=== PATIENT | male | born 1970 | race Caucasian/White ===

== ENCOUNTER → 2020-10-16 13:57 | Outpatient (CLI) | payer BC, SELFPAY ==
--- NOTE | 2020-10-16 14:06 | XR_ITS ---
PROCEDURE: XR ANKLE LT MIN 3V CLINICAL INDICATION: LT ANKLE PAIN COMPARISON: CR ANKL3 ANKLE-LT-3 VIEWS from 05/17/2015 FINDINGS: Minimal hypertrophic changes of the tip of the medial epicondyle noted. The joint spaces are well preserved. The talar dome has an unremarkable appearance. There is some sclerosis and hypertrophy of the sinus tarsi region of the calcaneus. No fracture or dislocation. No lytic or blastic change. IMPRESSION: Degenerative changes, no acute finding Dictated by: Jarod Bowens MD 11/02/2020 13:45 Jarod Bowens MD in [facility] 11/02/2020 13:45
== END ==
PROVIDERS: PCP Family Medicine; Visit Provider Family Medicine
DX: M25.572 Pain in left ankle and joints of left foot (principal)
CPT/HCPCS: 73610

== ENCOUNTER → 2020-12-05 08:43 | Outpatient (CLI) | payer BC, SELFPAY ==
--- NOTE | 2020-12-05 09:08 | MR_ITS ---
PROCEDURE: MR ANKLE LT WO/W CON CLINICAL INDICATION: left ankle pain COMPARISON: CR XR ANKLE LT MIN 3V from 10/16/2020 TECHNIQUE: Routine multiplanar multi echo sequences are performed without gadolinium enhancement. FINDINGS: The flexor, extensor and peroneal tendons are within normal limits. No evidence of tendinopathy or tear is noted. Visualized Achilles tendon is within normal limits. No abnormal signal intensity or tears noted. The syndesmotic, anterior and posterior talofibular ligaments are intact. The deltoid ligament complex appears intact. Calcaneofibular ligament demonstrates minor fraying but otherwise appears in the unremarkable. There is fluid noted in the retrocalcaneal bursa. There is multiple subchondral cysts noted in the calcaneum in the posterior subtalar joints, measuring up to 8 millimeters. There is a adjacent to the posterior talar articular surface. There is evidence of bone marrow edema of the calcaneum. No evidence of fracture is noted. Noted. The rest of the tarsals are unremarkable. There is evidence of osteophyte formation with degenerative changes of the subtalar joints. No evidence of osteochondral injury. IMPRESSION: There is bone marrow edema in the body of the calcaneum adjacent to the posterior talar articular surface without evidence of fractures. Multiple subchondral cystic changes noted in the posterior talar articular surface, consistent with osteoarthritis. No other acute abnormality is noted. Dictated by: Kendal Trinidad 12/08/2020 12:29 Kendal Trinidad in [facility] 12/08/2020 12:29
== END ==
PROVIDERS: PCP Family Medicine; Referring Provider Podiatrist; Visit Provider Podiatrist
DX: M25.579 Pain in unspecified ankle and joints of unspecified foot (principal)
CPT/HCPCS: 73723; A9576

== ENCOUNTER 2021-12-29 16:06 | Emergency (ER) | payer BC, SELFPAY ==
[2021-12-29 16:31] VITALS: BMI 24.4
--- NOTE | 2021-12-29 16:32 | CT_ITS ---
PROCEDURE INFORMATION: Exam: CT Abdomen And Pelvis Without Contrast Exam date and time: 12/29/2021 4:44 PM Age: 51 years old Clinical indication: Abdominal pain; Flank; Right; Additional info: R/O kidney stone TECHNIQUE: Imaging protocol: Computed tomography of the abdomen and pelvis without contrast. Radiation optimization: All CT scans at this facility use at least one of these dose optimization techniques: automated exposure control; mA and/or kV adjustment per patient size (includes targeted exams where dose is matched to clinical indication); or iterative reconstruction. 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 Findings stable. Gallbladder and bile ducts: Normal. No calcified stones. No ductal dilation. Pancreas: Normal. No ductal dilation. Spleen: Normal. No splenomegaly. Adrenal glands: Normal. No mass. Kidneys and ureters: Punctate nonobstructing left renal calculi in the upper and midpole. Faint calcifications are demonstrated in the lower pole of the right kidney. There is mild right hydronephrosis with mild dilatation of the proximal right ureter. Just distal to the right ureterovesical junction, there is a 2 mm calculus within the bladder. Findings are compatible with a recently passed right renal calculus. Stomach and bowel: Unremarkable. No obstruction. No mucosal thickening. Appendix: No evidence of appendicitis. Intraperitoneal space: Postoperative changes are now demonstrated in the left anterior abdomen. Clinically correlate regarding mesh placement. Arteries: Unremarkable. No abdominal aortic aneurysm. Lymph nodes: Unremarkable. No enlarged lymph nodes. Urinary bladder: See Kidneys and ureters finding. Reproductive: Unremarkable as visualized. Bones/joints: Unremarkable. No acute fracture. Soft tissues: Unremarkable. IMPRESSION: Findings are compatible with a recently passed right renal calculus.
[2021-12-29 16:37] LABS: Microscopic, Urine URINE MICROSCOPIC (MICROSCOPIC)
[2021-12-29 16:38] VITALS: BP 154/87; PULSE 60; RESP 18; TEMP 36.8; O2SAT 100; BMI 24.4
[2021-12-29 16:41] LABS: Appearance,Urine CLEAR (Clear); Bilirubin,Urine Negative (Negative); Blood, Urine Negative (Negative); Color,Urine YELLOW (Yellow); Glucose,Urine (UA) Negative (Negative); Ketones,Urine Negative (Negative); Leukocyte Esterase,Urine Negative (Negative); Nitrate,Urine Negative (Negative); Protein,Urine Negative (Negative); Urobilinogen,Urine 0.2 EU/dl (0.2)
--- NOTE | 2021-12-29 16:45 | PC.NURSE ---
pt to CT
[2021-12-29 16:49] LABS: Basophils # 0.1 K/mm3 (0-0.2); Basophils % 1.3 % (0.1-2.0); Eosinophils % 0.3 % (0.1-12.0); Hematocrit 50.2 % (42.0-52.0); Hemoglobin 16.1 g/dL (14.1-18.0); Lymphocytes # 1.3 K/mm3 (0.7-4.5); Lymphocytes % 13.6 % (10-50); Mean Corpuscular Volume 96.8 fl (80-94); Mean Platelet Volume 8.3 fl (7.4-10.4); Monocytes # 0.3 K/mm3 (0.1-1.0); Monocytes % 3.5 % (1.7-9.3); Neutrophils # 7.8 K/mm3 (1.8-7.8); Neutrophils % 81.2 % (37.0-80.0); Platelet Count 314 K/mm3 (142-424); Red Blood Count 5.19 M/mm3 (4.60-6.20); Red Cell Distribution Width 13.2 % (11.5-17.5); White Blood Count 9.6 K/mm3 (4.8-10.8)
[2021-12-29 16:54] LABS: Chloride 101 mmol/L (98-107); Potassium 4.2 mmoL/L (3.5-5.1); Sodium 138 mmol/L (136-145)
[2021-12-29 16:57] LABS: Alanine Aminotransferase 25 U/L (12-78); Albumin Level 4.5 g/dl (3.5-5.0); Albumin/Globulin Ratio 1.6 (1.1-1.8); Alkaline Phosphatase 75 U/L (38-126); Anion Gap 11.2 mEq/L (5-15); Aspartate Amino Transferase 38 U/L (17-59); Bilirubin,Total 0.7 mg/dl (0.2-1.3); Blood Urea Nitrogen 17 mg/dl (9-20); Carbon Dioxide 30 mmol/L (22.0-30.0); Creatinine Clearance Estimated 86 mL/min (50-200); Estimated Glomerular Filt Rate 64 ml/min (>60); GFR (African American) 77 ML/MIN (>60); Globulin 2.9 g/dL (1.3-3.2); Total Protein,Serum 7.4 g/dl (6.3-8.2)
[2021-12-29 16:58] LABS: Calcium 8.7 mg/dl (8.4-10.2); Glucose 127 mg/dl (74-100)
[2021-12-29 17:01] LABS: Squamous Epithelial Cell,Urine Occasional #/hpf (0-5)
--- NOTE | 2021-12-29 18:13 | [facility].EDGENADL ---
ED Disposition Clinical Impression: Ureteral calculus Disposition: Home, Self-Care Condition on Discharge: Good Additional Instructions: Strain your urine and save any stones you catch and take to your primary care provider. Return immediately if you develop a fever or have uncontrollable vomiting or uncontrollable pain. Referrals: Isela Josue MD [Primary Care Provider] - - Critical Care Critical Care Time: No Attestation: On 12/29/21, the high probability of a clinically significant, sudden or life threatening deterioration of the following system(s) required my full and direct attention, intervention and personal management. The time I documented below is in addition to time spent performing reported procedures but includes the following listed in this critical care notation. Medical Decision Making - Jesse Inquiry Pt receiving controlled substance: No Vital Signs: 12/29/21 16:38 Temperature 98.2 F Temperature Source Oral Pulse Rate [Left Radial] 60 Respiratory Rate 18 Blood Pressure [Right Arm] 154/87 H Blood Pressure Mean [Right Arm] 109 02 Sat by Pulse Oximetry 100 - Lab Data Lab Results 12/29/21 16:20: Urine Color Yellow, Urine Appearance Clear, Urine pH 7.0, Ur Specific [place] 1.020, Urine Protein Negative, Urine Glucose (UA) Negative, Urine Ketones Negative, Urine Blood Negative, Urine Nitrate Negative, Urine Bilirubin Negative, Urine Urobilinogen 0.2, Ur Leukocyte Esterase Negative, Urine RBC None, Urine WBC None, Ur Squamous Epith Cells Occasional, Urine Bacteria None 12/29/21 16:20: WBC 9.6, RBC 5.19, Hgb 16.1, Hct 50.2, MCV 96.8 H, MCH 31.0, MCHC 32.0, RDW 13.2, Plt Count 314, MPV 8.3, Neut % (Auto) 81.2 H, Lymph % (Auto) 13.6, [place] % (Auto) 3.5, Eos % (Auto) 0.3, Baso % (Auto) 1.3, Neut # (Auto) 7.8, Lymph # (Auto) 1.3, [place] # (Auto) 0.3, Eos # (Auto) 0.0, Baso # (Auto) 0.1 12/29/21 16:20: Sodium 138, Potassium 4.2, Chloride 101, Carbon Dioxide 30, Anion Gap 11.2, BUN 17, Creatinine 1.20, Estimated Creat Clear 86, Estimated GFR 64, Est GFR ( Amer) 77, Glucose 127 H, Calcium 8.7, Total Bilirubin 0.7, AST 38, ALT 25, Alkaline Phosphatase 75, Total Protein 7.4, Albumin 4.5, Globulin 2.9, Albumin/Globulin Ratio 1.6 Result diagrams: 12/29/21 16:20 12/29/21 16:20 Orders (Tests/Meds): ED MEDICATIONS Generic Name Dose Route Start Last Admin Trade Name Freq PRN Reason Stop Dose Admin Sodium Chloride 10 ml 12/29/21 16:32 Sodium Chloride 0.9% 10ml Flush Syringe IV 01/28/22 16:31 NEEDED PRN Maintain IV Site Discontinued Medications Generic Name Dose Route Start Last Admin Trade Name Freq PRN Reason Stop Dose Admin Morphine Sulfate 4 mg 12/29/21 16:32 12/29/21 16:35 Morphine 4mg/Ml Syringe IV 12/29/21 16:33 4 mg ONCE ONE Administration Ondansetron HCl 4 mg 12/29/21 16:32 12/29/21 16:35 Ondansetron 4mg/2ml Vial IV 12/29/21 16:33 4 mg ONCE ONE Administration - CT Data CT Scan: Abdomen, Pelvis Time Received: 18:[address] Reviewed: Yes: I have viewed the radiologist's interpretation Findings Narrative: PROCEDURE INFORMATION: Exam: CT Abdomen And Pelvis Without Contrast Exam date and time: 12/29/2021 4:44 PM Age: 51 years old Clinical indication: Abdominal pain; Flank; Right; Additional info: R/O kidney stone TECHNIQUE: Imaging protocol: Computed tomography of the abdomen and pelvis without contrast. Radiation optimization: All CT scans at this facility use at least one of these dose optimization techniques: automated exposure control; mA and/or kV adjustment per patient size (includes targeted exams where dose is matched to clinical indication); or iterative reconstruction. 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 Findings stable. Gallbladder and bile ducts: Normal. No rikki
--- NOTE | 2021-12-29 18:17 | PC.NURSE ---
ED MD at
[2021-12-29 18:34] VITALS: BP 151/71; PULSE 64; RESP 17; TEMP 36.8; O2SAT 100
== END 2021-12-29 18:36 | disposition home or self-care (01) ==
PROVIDERS: Emergency Provider Emergency Medicine; PCP Family Medicine
DX: N20.1 Calculus of ureter (principal)
CPT/HCPCS: 74176; 80053; 81001; 85025; 96374; 96375; 99284; J2405

== ENCOUNTER 2023-11-07 16:27 | Outpatient (POV) | payer BC, SELFPAY | END 2023-11-07 23:59 | disposition home or self-care (01) | LOC: SC 16:27 | PROVIDERS: PCP Family Medicine; Visit Provider Dermatology | DX: Z00.00 Encounter for general adult medical examination without abnormal findings (principal) ==